=== PATIENT | male | born 1970 | race Caucasian/White ===

== ENCOUNTER → 2017-04-25 | Outpatient (CLI) | payer MEDICARE, MEDICAID ==
[~2017-04-25] MED LIST: methylPREDNISolone 80 MG/ML (DEPO MEDROL) VIAL ONE
[2017-04-25 13:21] VITALS: BP 136/82
[2017-04-25 13:47] VITALS: BP 130/77
--- NOTE | 2017-04-30 11:36 | OPERATIVE REPORT ---
DATE OF SERVICE: 04/25/2017 DIAGNOSIS: Lumbar radiculopathy. PROCEDURE: Fluoroscopic guided interlaminar epidural steroid injection, L4-L5. PROCEDURE IN DETAIL: After obtaining informed consent from the patient, the patient's chart was reviewed. The patient was then brought to the procedure room and placed in the prone position. A timeout was performed. The back was prepped with antiseptic solution and under fluoro guidance, the patient's lumbar spine was identified at the level of L4-L5. The L5 vertebra was identified with fluoro guidance and approximately 2 mL of 1.5% lidocaine solution was used to anesthetize the skin directly down to the pedicle of the L5 and under fluoro guidance, the tract was anesthetized up to the interlaminar space and the ligamentum flavum. This needle was withdrawn. Then, a 20-gauge 3.5 inch Tuohy needle was then directed following the same tract that was anesthetized with the spinal needle. Using loss of resistance, the epidural space was identified and then the syringe was switched for contrast solution which was injected, approximately 1 mL. After secondary confirmation of epidural access, another syringe was placed and 80 mg of Depo-Medrol was injected. The Tuohy needle was then flushed out with approximately 2 mL of the normal saline used from the loss of resistance syringe. Band-Aids were applied to all the procedure sites. The patient tolerated the procedure well and was taken to the recovery room in stable condition. COMPLICATIONS: None. Job ID: [id number] DocumentID: [id number] Dictated Date: 04/29/2017 10:51:49 [employer] Date: 04/29/2017 12:52:28 Dictated By: SARAH SALDANA DO
== END ==
LOC: CARD 13:07
PROVIDERS: ATTEND Pain Medicine Interventional Pain Medicine
DX: M54.16 Radiculopathy, lumbar region (principal); G89.4 Chronic pain syndrome; Z79.899 Other long term (current) drug therapy
CPT/HCPCS: 62323

== ENCOUNTER 2018-12-10 19:10 | Outpatient (CLI) | payer MEDICARE, MEDICAID | END 2018-12-11 06:00 | disposition home or self-care (01) | LOC: SLEEP 19:10 | PROVIDERS: ATTEND Surgery | DX: G47.33 Obstructive sleep apnea (adult) (pediatric) (principal) | CPT/HCPCS: 95810 ==

== ENCOUNTER 2019-01-21 13:35 | Observation (INO) | payer MEDICAID, MEDICARE ==
[~2019-01-21] VITALS: Ht 149.9 cm; Wt 118.1 kg
[2019-01-21] VITALS (8 sets, daily range): BP systolic 106–136; BP diastolic 70–84
--- NOTE | 2019-01-21 13:37 | NUR ---
Arrival of pt to ER with noted sobbing and tachypnea being synchronized. accompanies pt. Pt ambulates a few feet then reports dizziness "seeing stars". Placed pt in W/C to enter ED5. Pt reports a chest pain for 3 days. No medical evaluation until today. Pt continues to sob and rapidly breathe getting faster while conversing. Pt reports "I am so very hot". "I cannot stand it." "It is like a menopause version I bet." Pt reports a sensation of tight squeeze with radiation into Left shoulder. See pt hx contributed in triage. reports all of patient's meds as stating she "keeps track of them."
[2019-01-21] MEDS ORDERED: morphine INJ 10 MG/ML 1ML (SYR OR VIAL) IVP STA (13:54)
[2019-01-21] MEDS ORDERED: ASPIRIN 81 MG CHEW (CHILDREN'S ASA) PO ONE (14:00)
[2019-01-21] MEDS ORDERED: LORazepam INJ 2 MG/ML (ATIVAN) VIAL IVP ONE ×2 (14:00→15:00)
--- NOTE | 2019-01-21 14:24 | ED Chest Pain ---
General Chief Complaint: Chest Pain Stated Complaint: SOB; CHEST PAIN History of Present Illness Date Seen by Provider: Jan 21, 2019 Time Seen by Provider: 13:45 Initial Comments The patient is a 48-year-old male with a history of morbid obesity, hypertension on lisinopril, asthma, migraine headache and anxiety. He reports an episode of pericarditis about 10 years ago. Per records review he did have a nonischemic stress test in 2017. He presents with concern for 3 days of sharp, constant, poorly localizing and rather severe sternal chest discomfort which patient states is somewhat pleuritic in nature, but nonexertional. He endorses radiation to bilateral shoulders as well as to his back, but the sensation of radiation is dull and not ripping or tearing in character. Associated shortness of breath. Associated nausea. No associated diaphoresis. Patient appears quite anxious. He denies fevers, vomiting, new productive cough, abdominal pain, flank pain, back pain, dysuria or hematuria, changes in bowel habits. He denies recent immobilization, hemoptysis, surgery, calf pain or swelling, estrogen or steroid use, personal or family history of venous thromboembolic disease. Allergies and Home Medications Allergies Uncoded Allergies: HOMEOPATHIC PRODUCTS (Adverse Reaction, Unknown, 01/21/19) Strongly stated by patient Patient Home Medication List Home Medication List Reviewed: Yes Review of Systems Review of Systems Constitutional: see HPI All Other Systems Reviewed Negative Unless Noted: Yes (Negative excepted noted.) Past Glbrhms-Htulsp-Lweeij Hx Past Med/Social Hx: Reviewed Nursing Past Med/Soc Hx Family Medical History Reviewed Nursing Family Hx Physical Exam Vital Signs Vital Signs - First Documented 01/21/19 13:37 Temp 98.1 Pulse 104 Resp 28 B/P (MAP) 123/70 (87) Pulse Ox 96 O2 Delivery Room Air Capillary Refill : Height, Weight, BMI Height: 5'3.00" Weight: 215lbs. 0.0oz. 97.453122wy; 38.1 BMI Method: General Appearance: No Apparent Distress Other comments This is an older male appearing nontoxic and in no acute distress. He appears quite anxious. Head is normocephalic and atraumatic. Neck is supple and nontender. Oropharynx is moist. Lungs are clear to auscultation at all stations. There is a normal S1 and S2 without rubs or gallops and capillary refill is appropriate, less 2 seconds globally. Abdomen is soft, nontender and nondistended and there are no pulsatile masses noted. Skin is warm and dry without cyanosis, clubbing or dependent peripheral edema. There is no calf pain or swelling noted bilaterally. Psychiatrically, the patient demonstrates appropriate mood and affect and is alert. Progress/Results/Core Measures Results/Orders Lab Results Laboratory Tests Test 01/21/19 13:49 01/21/19 15:00 Range/Units White Blood Count 12.9 H 4.3-11.0 10^3/uL Red Blood Count 4.88 4.35-5.85 10^6/uL Hemoglobin 14.6 13.3-17.7 G/DL Hematocrit 44 40-54 % Mean Corpuscular Volume 89 80-99 FL Mean Corpuscular Hemoglobin 30 25-34 PG Mean Corpuscular Hemoglobin Concent 34 32-36 G/DL Red Cell Distribution Width 13.5 10.0-14.5 % Platelet Count 278 130-400 10^3/uL Mean Platelet Volume 9.1 7.4-10.4 FL Neutrophils (%) (Auto) 69 42-75 % Lymphocytes (%) (Auto) 20 12-44 % Monocytes (%) (Auto) 8 0-12 % Eosinophils (%) (Auto) 2 0-10 % Basophils (%) (Auto) 0 0-10 % Neutrophils # (Auto) 8.9 H 1.8-7.8 X 10^3 Lymphocytes # (Auto) 2.6 1.0-4.0 X 10^3 Monocytes # (Auto) 1.1 H 0.0-1.0 X 10^3 Eosinophils # (Auto) 0.3 0.0-0.3 10^3/uL Basophils # (Auto) 0.0 0.0-0.1 10^3/uL Sodium Level 131 L 135-145 MMOL/L Potassium Level 4.1 3.6-5.0 MMOL/L Chloride Level 92 L 98-107 MMOL/L Carbon Dioxide Level 23 21-32 MMOL/L Anion Gap 16 H 5-14 MMOL/L Blood Urea Nitrogen 7 7-18 MG/DL Creatinine 0.78 0.60-1.30 MG/DL Estimat Glomerular Filtration Rate > 60 BUN/Creatinine Ratio 9 Glucose Level 208 H 70-105 MG/DL Calcium Level 9.5 8.5-10.1 MG/DL Corrected Calcium 9.7 8.5-10.1 MG/DL Total Bilirubin 0.3 0.1-1.0 MG/DL Aspartate Amino Transf (AST/SGOT) 21 5-34 U/L Alanine Aminotransferase (ALT/SGPT) 22 0-55 U/L Alkaline Phosphatase 113 40-136 U/L Troponin T < 6 <=15 NG/L Pro-B-Type Natriuretic Peptide 7.2 <75.0 PG/ML Total Protein 7.4 6.4-8.2 GM/DL Albumin 3.8 3.2-4.5 GM/DL Prothrombin Time 14.4 12.2-14.7 SEC INR Comment 1.1 0.8-1.4 Activated Partial Thromboplast Time 28 24-35 SEC D-Dimer 0.25 0.00-0.49 UG/ML My Orders Orders - SAVITA ROJAS MD Cbc With Automated Diff (01/21/19 13:54) Comprehensive Metabolic Panel (01/21/19 13:54) Troponin T (01/21/19 13:54) Ekg Tracing (01/21/19 13:54) Chest 1 View Ap/Pa Only (01/21/19 13:54) Probnp Fs (01/21/19 13:54) Protime With Inr (01/21/19 13:54) Partial Thromboplastin Time (01/21/19 13:54) Aspirin Chewable Tablet (Baby Aspirin Ch (01/21/19 14:00) Morphine Injection (Morphine Injection (01/21/19 13:54) Lorazepam Injection (Ativan Injection) (01/21/19 14:00) Fibrin Degradation Products (01/21/19 13:54) Lorazepam Injection (Ativan Injection) (01/21/19 15:00) Ns Iv 1000 Ml (Sodium Chloride 0.9%) (01/21/19 14:58) Medications Given in ED Current Medications Medications Dose Ordered Sig/Lawson Route Start Time Stop Time Status Last Admin Dose Admin Aspirin 324 mg ONCE ONCE PO 01/21/19 14:00 01/21/19 14:01 DC 01/21/19 14:08 324 MG Lorazepam 1 mg ONCE ONCE IVP 01/21/19 14:00 01/21/19 14:01 DC 6/5/19 14:09 1 MG Lorazepam 1 mg ONCE ONCE IVP 01/21/19 15:00 01/21/19 15:01 DC 01/21/19 15:12 1 MG Vital Signs/I&O 01/21/19 01/21/19 13:37 13:37 Temp 98.1 Pulse 104 Resp 28 B/P (MAP) 123/70 (87) Pulse Ox 96 O2 Delivery Room Air Progress Progress Note : Time: 14:35 Progress Note 48-year-old patient with some risk factors but a nonsmoker and with a nonischemic stress test last in 2016, presenting with atypical generalized sternal sharp pleuritic chest discomfort 3 days. Initial EKG nonacute. We will check labs and chest x-ray and give medication for symptomatic management as per nursing flow sheet as well as an aspirin and will then reevaluate. Will send a d-dimer. Update 1540: Patient is resting somewhat more comfortably and vital signs remain stable. He remains rather anxious in the examination room. Workup is as above, generally without significant evidence of acute process aside from elevated glucose, raising suspicion for diabetes although he has no formal diagnosis of diabetes at this time. Troponin and EKG are nonacute, BNP is not elevated and d- dimer is negative. This patient remains symptomatic and does as above have some risk factors for coronary disease, will bring in for ACS rule out, observation on telemetry and likely a attention from cardiology. Patient is graciously accepted in transfer by Dr. Spaulding. EKG : Comment Sinus rhythm, rate 98, no acute ST elevation or depression, OR 157, QRS 82, QTC 438, EP interpretation. Diagnostic Imaging Comments INDICATION: Chest pain. COMPARISON: None. FINDINGS: Single frontal view of the chest demonstrates normal heart size and pulmonary vascularity. The lungs are well aerated and clear. No large pleural effusion or pneumothorax is seen. The visualized osseous structures show no acute abnormalities. IMPRESSION: 1. No acute cardiopulmonary process. Departure Impression Primary Impression: Other chest pain Additional Impression: Hyperglycemia Disposition: ADMITTED INPATIENT Condition: Stable Admissions Decision to Admit Reason: Admit from ER (General) Departure-Patient Inst. Referrals: [facility] (PCP) Primary Care Physician ABDIRASHID BAUER APRN (Family) Primary Care Physician SAVITA ROJAS MD Jan 21, 2019 14:24
--- NOTE | 2019-01-21 14:37 | Diagnostic Imaging Report ---
INDICATION: Chest pain. COMPARISON: None. FINDINGS: Single frontal view of the chest demonstrates normal heart size and pulmonary vascularity. The lungs are well aerated and clear. No large pleural effusion or pneumothorax is seen. The visualized osseous structures show no acute abnormalities. IMPRESSION: 1. No acute cardiopulmonary process. Dictated by: Dictated on workstation # [id number]
[2019-01-21] MEDS ORDERED: NS IV 1000 ML 1,000 ML IV SCH ×2 (14:58→21:45)
[2019-01-21 15:05] LABS: ALANINE AMINOTRANSFERASE 22 U/L (0-55); ALBUMIN 3.8 GM/DL (3.2-4.5); ALKALINE PHOSPHATASE 113 U/L (40-136); BILIRUBIN,TOTAL 0.3 MG/DL (0.1-1.0); BUN/CREATININE RATIO 9; CALCIUM 9.5 MG/DL (8.5-10.1); CARBON DIOXIDE 23 MMOL/L (21-32); CHLORIDE 92 MMOL/L (98-107); CREATININE SERUM 0.78 MG/DL (0.60-1.30); GFR ESTIMATED > 60; GLUCOSE 208 MG/DL (70-105); POTASSIUM 4.1 MMOL/L (3.6-5.0); SODIUM 131 MMOL/L (135-145); TOTAL PROTEIN 7.4 GM/DL (6.4-8.2)
[2019-01-21 15:19] LABS: HEMATOCRIT 44 % (40-54); HEMOGLOBIN 14.6 G/DL (13.3-17.7); MEAN CORPUSCULAR HEMOGLOBIN 30 PG (25-34); MEAN CORPUSCULAR HGB CONC 34 G/DL (32-36); MEAN CORPUSCULAR VOLUME 89 FL (80-99); PLATELET COUNT 278 10^3/uL (130-400); RED CELL DISTRIBUTION WIDTH 13.5 % (10.0-14.5); WHITE BLOOD COUNT 12.9 10^3/uL (4.3-11.0)
[2019-01-21 15:20] LABS: BASOPHILS % (AUTO) 0 % (0-10); EOSINOPHILS # (AUTO) 0.3 10^3/uL (0.0-0.3); EOSINOPHILS % (AUTO) 2 % (0-10); LYMPHOCYTES # (AUTO) 2.6 X 10^3 (1.0-4.0); LYMPHOCYTES % (AUTO) 20 % (12-44); MEAN PLATELET VOLUME 9.1 FL (7.4-10.4); MONOCYTES # (AUTO) 1.1 X 10^3 (0.0-1.0); MONOCYTES % (AUTO) 8 % (0-12); NEUTROPHILS # (AUTO) 8.9 X 10^3 (1.8-7.8); NEUTROPHILS % (AUTO) 69 % (42-75)
[2019-01-21 15:27] LABS: FIBRIN DEGRADATION PRODUCTS 0.25 UG/ML (0.00-0.49); INR 1.1 (0.8-1.4); PROTHROMBIN TIME PATIENT 14.4 SEC (12.2-14.7)
--- NOTE | 2019-01-21 15:30 | NUR ---
Pt has screamed out and running to doorway. Pt moved arm and dislodged IV. IV fluids shut off and gauze with pressure to R hand site. Pt continues to hyperventilate. Pt is very anxious and reports getting so hot. Reassurance given and sits near pt and attempts to talk patient thru spells of worsening tachypnea. states, "I am used to have to hold him down and personal development coach him when they do needles." "This happens at [facility]."
[2019-01-21] MEDS ORDERED: KETOROLAC 30 MG/ML VIAL IVP ONE (15:45)
--- NOTE | 2019-01-21 16:00 | NUR ---
Call to [facility] in [facility] office to request bed.
--- NOTE | 2019-01-21 16:59 | NUR ---
Transfer accepted by [facility] at this time. States they will be here in approximately 1 hour to get patient.
[2019-01-21] MEDS ORDERED: BACL20TA PO (18:03)
[2019-01-21] MEDS ORDERED: Trazodone HCL (18:03)
[2019-01-21] MEDS ORDERED: DIVA500T15 PO (18:03)
[2019-01-21] MEDS ORDERED: CLON1TAB13 PO (18:03)
[2019-01-21] MEDS ORDERED: LISI10TA2 PO (18:03)
[2019-01-21] MEDS ORDERED: DULO60CA58 PO (18:03)
[2019-01-21] MEDS ORDERED: SOLI10TA2 PO (18:03)
[2019-01-21] MEDS ORDERED: PANT40TA3 PO (18:03)
[2019-01-21] MEDS ORDERED: OXYC-471 PO (18:03)
--- NOTE | 2019-01-21 18:20 | NUR ---
[facility] here for transfer, add'l forms nearly complete for [facility]. Pt's to desk as noting staff can hear pt increasing respirations and sobbing sounds as per arrival. explains to patient ambulance in the building and further cease of hyperventilation noted. Report to [facility]. EMS requested [place] to wrap pt's saline lock site to perserve against accidental dislodge again.
--- NOTE | 2019-01-21 18:30 | NUR ---
Pt departing at this time on [facility] in transfer to [place] [facility]. No change in pt condiiton.
--- NOTE | 2019-01-21 19:15 | NUR ---
KIRAN BENTLEY admitted to room 408-1, with an admitting diagnosis of CHEST PAIN, on 01/21/19 from [facility] via EMS, accompanied by EMS STAFF.KIRAN BENTLEY introduced to surroundings, call light, bed controls, phone, TV, temperature control, lights, meal times, smoking policy, visitor policy, side rail policy, bathrooms and showers. Patient Rights given to patient in the handbook.KIRAN BENTLEY verbalizes understanding that [facility] is not responsible for the loss or damage to any personal effects or valuables that are kept in the patients posession during their hospitalization.
[2019-01-21] MEDS ORDERED: HYDROcodone/APAP 5 MG/325 MG (LORTAB) TAB PO PRN (21:45)
[2019-01-21] MEDS ORDERED: ACETAMINOPHEN 500 MG TAB (TYLENOL) PO PRN (21:45)
[2019-01-21] MEDS ORDERED: diphenhydrAMINE 25 MG TAB (BENADRYL) PO PRN (21:45)
[2019-01-21] MEDS ORDERED: ALPRAZolam 0.25 MG (XANAX) TAB PO PRN (21:45)
[2019-01-21] MEDS ORDERED: MELATONIN 3 MG TABLET PO PRN (21:45)
[2019-01-21] MEDS ORDERED: CALCIUM CARBONATE 500 MG (TUMS) TAB.CHEW PO PRN (21:45)
[2019-01-21] MEDS ORDERED: DOCUSATE SODIUM 100 MG (COLACE) CAP PO PRN (21:45)
[2019-01-21] MEDS ORDERED: fentaNYL INJECTION 100 MCG/2 ML AMP IVP PRN (21:45)
[2019-01-21] MEDS ORDERED: LOPERAMIDE 2 MG (IMODIUM) CAP PO PRN (21:45)
[2019-01-21] MEDS ORDERED: ONDANSETRON 4 MG/2 ML (SDV) Z0FRAN IVP PRN (21:45)
[2019-01-22] VITALS (13 sets, daily range): BP systolic 96–131; BP diastolic 56–84
[2019-01-22 02:27] LABS: ALANINE AMINOTRANSFERASE 23 U/L (0-55); ALBUMIN 3.7 GM/DL (3.2-4.5); ALKALINE PHOSPHATASE 103 U/L (40-136); BILIRUBIN,TOTAL 0.4 MG/DL (0.1-1.0); BUN/CREATININE RATIO 13; CALCIUM 9.5 MG/DL (8.5-10.1); CARBON DIOXIDE 20 MMOL/L (21-32); CHLORIDE 99 MMOL/L (98-107); CREATININE SERUM 0.87 MG/DL (0.60-1.30); GFR ESTIMATED > 60; GLUCOSE 166 MG/DL (70-105); POTASSIUM 4.2 MMOL/L (3.6-5.0); SODIUM 133 MMOL/L (135-145); TOTAL PROTEIN 7.3 GM/DL (6.4-8.2)
[2019-01-22 07:50] LABS: BASOPHILS % (AUTO) 0 % (0-10); EOSINOPHILS # (AUTO) 0.3 10^3/uL (0.0-0.3); EOSINOPHILS % (AUTO) 3 % (0-10); HEMATOCRIT 40 % (40-54); HEMOGLOBIN 13.2 G/DL (13.3-17.7); LYMPHOCYTES # (AUTO) 2.1 X 10^3 (1.0-4.0); LYMPHOCYTES % (AUTO) 17 % (12-44); MEAN CORPUSCULAR HEMOGLOBIN 29 PG (25-34); MEAN CORPUSCULAR HGB CONC 33 G/DL (32-36); MEAN CORPUSCULAR VOLUME 89 FL (80-99); MEAN PLATELET VOLUME 8.7 FL (7.4-10.4); MONOCYTES % (AUTO) 8 % (0-12); NEUTROPHILS # (AUTO) 8.7 X 10^3 (1.8-7.8); NEUTROPHILS % (AUTO) 72 % (42-75); PLATELET COUNT 249 10^3/uL (130-400); RED CELL DISTRIBUTION WIDTH 13.5 % (10.0-14.5); WHITE BLOOD COUNT 12.1 10^3/uL (4.3-11.0)
[2019-01-22] MEDS: SENNA W/DOCUSATE (SENOKOT S) TABLET PO SCH ×2 (08:59→21:33)
--- NOTE | 2019-01-22 09:55 | Short Stay Summary-Hospitalist ---
History of Present Illness HPI/Chief Complaint CC: Chest pain HPI: This is a 48yoWM clinic patient of [facility] who has a h/o chronic anxiety, DM, HTN and severe KYLE with severe obesity who presents to the [facility] ER with chest pain for 3 days. Patient has multiple risk factors for ACS so he was admitted and monitored overnight and will be seen by Cardiology. Overall p rognosis guarded given BMI 52 and severe KYLE. Source: patient, family Exam Limitations: no limitations Date Seen 01/22/19 Time Seen by a Provider: 09:30 Attending Physician Pita Spaulding DO [facility] Center/Se,[facility] Referring Physician Date of Admission Jan 21, 2019 at 15:46 Home Medications & Allergies Home Medications Reviewed patient Home Medication Reconciliation performed by pharmacy medication reconciliations mechanical engineering technician and/or nursing. Patients Allergies have been reviewed. Allergies Allergies Uncoded Allergies HOMEOPATHIC PRODUCTS ( Adverse Reaction, Unknown, 01/21/19) Strongly stated by patient Past Zxepgte-Tosnpi-Vwwkxn Hx Past Med/Social Hx: Reviewed Nursing Past Med/Soc Hx, Reviewed and Corrections made Patient Social History Marrital Status: cohabiting Employed/Student: unemployed Alcohol Use: Denies Use Recreational Drug Use: No Smoking Status: Never a Smoker Physical Abuse Screen: No Sexual Abuse: No Recent Foreign Travel: No Contact w/other who traveled: No Recent Hopitalizations: No Recent Infectious Disease Expo: No Immunizations Up To Date Date of Pneumonia Vaccine: Oct 26, 2014 Seasonal Allergies Seasonal Allergies: Yes (allergic rhinitis) Past Medical History Respiratory: Sleep Apnea Currently Using CPAP: Yes Cardiac: High Cholesterol, Hypertension Neurological: Headaches /Migraines Gastrointestinal: Gastroesophageal Reflux Musculoskeletal: Chronic Back Pain Psychosocial: Sleep Difficulties, Anxiety History of Blood Disorders: No Family History Reviewed Nursing Family Hx Review of Systems Constitutional: see HPI EENTM: no symptoms reported Respiratory: no symptoms reported Cardiovascular: chest pain Gastrointestinal: no symptoms reported Genitourinary: no symptoms reported Musculoskeletal: no symptoms reported Skin: no symptoms reported Psychiatric/Neurological: Anxiety All Other Systems Reviewed Negative Unless Noted: Yes Physical Exam Physical Exam Vital Signs Vital Signs - First Documented 01/21/19 13:37 Temp 98.1 Pulse 104 Resp 28 B/P (MAP) 123/70 (87) Pulse Ox 96 O2 Delivery Room Air Capillary Refill : Less Than 3 Seconds Height, Weight, BMI Height: 4'11.00" Weight: 260lbs. 7.0oz. 118.716414tf; 52.6 BMI Method:Stated General Appearance: No Apparent Distress, WD/WN, Chronically ill, Obese Eyes: Bilateral Eye Normal Inspection, Bilateral Eye PERRL HEENT: PERRL/EOMI, Normal ENT Inspection, Pharynx Normal Neck: Full Range of Motion, Normal Inspection, Non Tender, Supple, Carotid Bruit Respiratory: Chest Non Tender, Lungs Clear, Normal Breath Sounds, No Accessory Muscle Use, No Respiratory Distress Cardiovascular: Regular Rate, Rhythm, No Edema, No Gallop, No JVD, No Murmur, Normal Peripheral Pulses Gastrointestinal: Normal Bowel Sounds, No Organomegaly, No Pulsatile Mass, Non Tender, Soft Back: Normal Inspection, No CVA Tenderness, No Vertebral Tenderness Extremity: Normal Capillary Refill, Normal Inspection, Normal Range of Motion, Non Tender, No Calf Tenderness, No Pedal Edema Neurologic/Psychiatric: Alert, Oriented x3, No Motor/Sensory Deficits, Normal Mood/Affect Skin: Normal Color, Warm/Dry Lymphatic: No Adenopathy Results Results/Procedures Labs Laboratory Tests 01/21/19 13:49 01/22/19 01:50 01/22/19 07:45 Patient resulted labs reviewed. Short Stay Diagnosis Discharge Diagnosis-Short Stay Admission Diagnosis Assessment: Atypical chest pain KYLE severe Obesity morbid HTN HLP Chronic back pain Plan: Home meds Cardiology appreciated Final Discharge Diagnosis Assessment: Atypical chest pain KYLE severe Obesity morbid HTN HLP Chronic back pain Plan: Home meds Cardiology appreciated Conclusion Plan Plan: Monitor closely Cardiology appreciated Diagnosis/Problems Diagnosis/Problems (1) Other chest pain Status: Acute (2) Hyperglycemia Status: Acute Clinical Quality Measures AMI/AHF: ASA po Prior to arrival: No DVT/VTE Risk/Contraindication: Risk Factor Score Per Nursin RFS Level Per Nursing on Admit: 4+=Very High PITA SPAULDING DO Jan 22, 2019 09:55
[2019-01-22] MEDS ORDERED: ALBU2.5V4 NEB (10:09)
[2019-01-22] MEDS ORDERED: TRAZ-222 PO (10:09)
[2019-01-22] MEDS ORDERED: BISA-65 PO (10:09)
[2019-01-22] MEDS ORDERED: SOLI10TA2 PO (10:09)
[2019-01-22] MEDS ORDERED: DIPH25CA79 PO (10:09)
--- NOTE | 2019-01-22 10:09 | NUR ---
SPOKE WITH THE PATIENTS REGARDING MEDICATIONS. SHE HAD HIS BOTTLES WITH HER AND VERIFIED HOW HE TAKES THEM. BOTTLES FROM [facility] [employer] [facility] LAYNE LÓPEZ: 01-13-19 TRAZODONE 50MG HS #30 12-25-18 BACLOFEN 20MG 1/2 BID #30 12-25-18 OXYCODONE 5-325MG TID PRN #84 12-25-18 CLONAZEPAM 1MG 1.5 HS #42 12-24-18 LISINOPRIL 10MG DAILY #30 12-24-18 DULOXETINE 60MG DAILY #30 12-24-18 PROTONIX 40MG DAILY #30 12-24-18 DIVALPROEX ER 500MG DAILY #30 10-27-18 VESICARE 10MG DAILY #60 (STATES HE USED TO TAKE 5MG AND SO THEY TOOK 2 OF THE 5MG TABLETS UNTIL THEY WERE GONE) HE TAKES BENADRYL AND DULCOLAX OTC NEEDED. SHE ALSO STATES HE HAS AN ALBUTEROL NEBULIZER SOLUTION ON HAND AT HOME. HE DOES NOT HAVE ANY INHALERS.
--- NOTE | 2019-01-22 11:43 | Consultation-Cardiology ---
HPI-Cardiology Cardiology Consultation Date of Consultation 01/22/19 Date of Admission Time Seen by Provider: 11:39 Indication: chest pain HPI 48 years old gentleman with morbid obesity, hypertension hyperlipidemia. Has been having chest pain waxing and waning for few weeks, became worse yesterday described as dull achiness all over his chest radiating to the left upper side of his chest and left shoulder and back. Came into the emergency room and transferred for forced cough, currently chest pain-free. Reported having stress test done about a year ago in [place] and it was reported negative. Patient is fairly concerned with the recurrent chest pain. We discussed the management plan, I offered repeating stress test versus cardiac catheterization patient prefer to proceed with cardiac catheterization. Home Medications & Allergies Allergies: Uncoded Allergies: HOMEOPATHIC PRODUCTS (Adverse Reaction, Unknown, 01/21/19) Strongly stated by patient Home Medication List Reviewed: Yes LML-[id number]-Dqtdnp Hx Patient Social History Marital Status: Alcohol Use: Denies Use Recreational Drug Use: No Smoking Status: Never a Smoker Recent Foreign Travel: No Recent Infectious Disease Expo: No Recent Hopitalizations: No Physical Abuse Screen: No Sexual Abuse: No Immunizations Up To Date Date of Pneumonia Vaccine: Oct 26, 2014 Past Medical History discussed below Family Medical History Family Medical Hx strong family history of heart disease Review of Systems-General Review of Systems Constitutional: no symptoms reported, see HPI, malaise EENTM: see HPI, no symptoms reported Respiratory: see HPI; No cough; dyspnea on exertion; No hemoptysis, No orthopnea, No phlegm; short of breath; No stridor, No wheezing, No other Cardiovascular: see HPI, chest pain; No edema, No Hx of Intervention, No palpitations, No syncope, No vascular heart diseas, No other Gastrointestinal: no symptoms reported, see HPI Genitourinary: no symptoms reported, see HPI Musculoskeletal: see HPI, back pain, neck pain Skin: see HPI Psychiatric/Neurological: See HPI All Other Systems Reviewed Negative Unless Noted: Yes (Negative excepted noted.) Reviewed Test Results Reviewed Test Results Lab Laboratory Tests Test 01/21/19 13:49 01/21/19 15:00 01/21/19 20:20 01/22/19 01:50 Range/Units White Blood Count 12.9 H 4.3-11.0 10^3/uL Red Blood Count 4.88 4.35-5.85 10^6/uL Hemoglobin 14.6 13.3-17.7 G/DL Hematocrit 44 40-54 % Mean Corpuscular Volume 89 80-99 FL Mean Corpuscular Hemoglobin 30 25-34 PG Mean Corpuscular Hemoglobin Concent 34 32-36 G/DL Red Cell Distribution Width 13.5 10.0-14.5 % Platelet Count 278 130-400 10^3/uL Mean Platelet Volume 9.1 7.4-10.4 FL Neutrophils (%) (Auto) 69 42-75 % Lymphocytes (%) (Auto) 20 12-44 % Monocytes (%) (Auto) 8 0-12 % Eosinophils (%) (Auto) 2 0-10 % Basophils (%) (Auto) 0 0-10 % Neutrophils # (Auto) 8.9 H 1.8-7.8 X 10^3 Lymphocytes # (Auto) 2.6 1.0-4.0 X 10^3 Monocytes # (Auto) 1.1 H 0.0-1.0 X 10^3 Eosinophils # (Auto) 0.3 0.0-0.3 10^3/uL Basophils # (Auto) 0.0 0.0-0.1 10^3/uL Sodium Level 131 L 133 L 135-145 MMOL/L Potassium Level 4.1 4.2 3.6-5.0 MMOL/L Chloride Level 92 L 99 98-107 MMOL/L Carbon Dioxide Level 23 20 L 21-32 MMOL/L Anion Gap 16 H 14 5-14 MMOL/L Blood Urea Nitrogen 7 11 7-18 MG/DL Creatinine 0.78 0.87 0.60-1.30 MG/DL Estimat Glomerular Filtration Rate > 60 > 60 BUN/Creatinine Ratio 9 13 Glucose Level 208 H 166 H 70-105 MG/DL Calcium Level 9.5 9.5 8.5-10.1 MG/DL Corrected Calcium 9.7 9.7 8.5-10.1 MG/DL Total Bilirubin 0.3 0.4 0.1-1.0 MG/DL Aspartate Amino Transf (AST/SGOT) 21 18 5-34 U/L Alanine Aminotransferase (ALT/SGPT) 22 23 0-55 U/L Alkaline Phosphatase 113 103 40-136 U/L Troponin T < 6 <=15 NG/L Pro-B-Type Natriuretic Peptide 7.2 <75.0 PG/ML Total Protein 7.4 7.3 6.4-8.2 GM/DL Albumin 3.8 3.7 3.2-4.5 GM/DL Prothrombin Time 14.4 12.2-14.7 SEC INR Comment 1.1 0.8-1.4 Activated Partial Thromboplast Time 28 24-35 SEC D-Dimer 0.25 0.00-0.49 UG/ML Troponin I < 0.028 < 0.028 <0.028 NG/ML Test 01/22/19 07:45 Range/Units White Blood Count 12.1 H 4.3-11.0 10^3/uL Red Blood Count 4.50 4.35-5.85 10^6/uL Hemoglobin 13.2 L 13.3-17.7 G/DL Hematocrit 40 40-54 % Mean Corpuscular Volume 89 80-99 FL Mean Corpuscular Hemoglobin 29 25-34 PG Mean Corpuscular Hemoglobin Concent 33 32-36 G/DL Red Cell Distribution Width 13.5 10.0-14.5 % Platelet Count 249 130-400 10^3/uL Mean Platelet Volume 8.7 7.4-10.4 FL Neutrophils (%) (Auto) 72 42-75 % Lymphocytes (%) (Auto) 17 12-44 % Monocytes (%) (Auto) 8 0-12 % Eosinophils (%) (Auto) 3 0-10 % Basophils (%) (Auto) 0 0-10 % Neutrophils # (Auto) 8.7 H 1.8-7.8 X 10^3 Lymphocytes # (Auto) 2.1 1.0-4.0 X 10^3 Monocytes # (Auto) 1.0 0.0-1.0 X 10^3 Eosinophils # (Auto) 0.3 0.0-0.3 10^3/uL Basophils # (Auto) 0.0 0.0-0.1 10^3/uL Troponin I < 0.028 <0.028 NG/ML Physical Exam Physical Exam Vital Signs Vital Signs - First Documented 01/21/19 13:37 Temp 98.1 Pulse 104 Resp 28 B/P (MAP) 123/70 (87) Pulse Ox 96 O2 Delivery Room Air Capillary Refill : Less Than 3 Seconds Height, Weight, BMI Height: 4'11.00" Weight: 260lbs. 7.0oz. 118.391766jl; 52.6 BMI Method:Stated General Appearance: No Apparent Distress Eyes: Bilateral Eye Normal Inspection, Bilateral Eye PERRL, Bilateral Eye EOMI HEENT: PERRL/EOMI, TMs Normal, Normal ENT Inspection, Pharynx Normal, Moist Mucous Membranes Neck: Full Range of Motion, Normal Inspection, Non Tender, Supple, Carotid Bruit Respiratory: Chest Non Tender, Normal Breath Sounds, No Accessory Muscle Use, No Respiratory Distress Cardiovascular: Regular Rate, Rhythm, No Edema, No Gallop, No JVD, No Murmur, Normal Peripheral Pulses Gastrointestinal: Normal Bowel Sounds, No Organomegaly, No Pulsatile Mass, Non Tender, Soft Back: Normal Inspection, No CVA Tenderness, No Vertebral Tenderness Extremity: Normal Capillary Refill, Normal Inspection, Normal Range of Motion, Non Tender, No Calf Tenderness, No Pedal Edema Neurologic/Psychiatric: Alert, Oriented x3, No Motor/Sensory Deficits, Normal Mood/Affect Skin: Normal Color, Warm/Dry Lymphatic: No Adenopathy A/P-Cardiology Admission Diagnosis chest pain Hypertension Hyperlipidemia Shortness of breath Assessment/Plan chest pain nonspecific etiology resembling angina, cardiac enzymes and EKG were negative, had a stress test done about a year ago, discussed the management plan, I offered stress test versus Cardec catheterization, patient preferred to proceed with cardiac catheterization, has been to have stress test again. Hypertension, continue to monitor blood pressure Hyperlipidemia, monitor lipids. Chronic back pain, neck pain Morbid obesity. Clinical Quality Measures AMI/AHF: ASA po Prior to arrival: No DVT/VTE Risk/Contraindication: Risk Factor Score Per Nursin RFS Level Per Nursing on Admit: 4+=Very High PAO SCHAFFER MD Jan 22, 2019 11:43
[2019-01-22] MEDS ORDERED: NS IV 1000 ML 1,000 ML IV SCH ×2 (11:45→16:10)
--- NOTE | 2019-01-22 12:27 | NUR ---
Patient complained of chest tightness. Vital signs are 124/76, Pulse 92, Respirations 22, Os Sat 95%. Tele shows Sinus Rhythm. Spoke with Dr. Cardoza and orders received for Nitro Sublinguil now. Patient received Nitro SL and tightness subsided in 5 minutes.
[2019-01-22] MEDS ORDERED: NITROGLYCERIN 0.4 MG SL TABS BTL 25'S SL PRN (12:30)
[2019-01-22] MEDS ORDERED: LIDOCAINE 1% INJ 20 ML 20 ML VIAL ONE (13:26)
[2019-01-22] MEDS ORDERED: HEParin (CATH LAB) 2,000 ML IV ONE (13:26)
[2019-01-22] MEDS ORDERED: MIDAZOLAM 5 MG/5 ML (VERSED) VIAL ONE (13:30)
[2019-01-22] MEDS ORDERED: fentaNYL INJECTION 100 MCG/2 ML AMP ONE (13:30)
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
[2019-01-22] MEDS ORDERED: RT-ALBUTEROL SULF 2.5 MG/3 ML PRE-MIX VIAL IH PRN (15:30)
[2019-01-22] MEDS ORDERED: NON-FORMULARY MEDICATION 1 EA EA (Diphenhydramine HCl (Benadryl) 25 MG) PO PRN (15:30)
[2019-01-22] MEDS ORDERED: BISACODYL 5 MG (DULCOLAX) TABLET PO PRN (15:30)
[2019-01-22] MEDS ORDERED: oxyCODONE/APAP 5/325MG (PERCOCET 5) TABLET PO PRN (15:30)
--- NOTE | 2019-01-22 15:30 | NUR ---
Patient taken to chemical lab technician per cath staff per hospital bed.
[2019-01-22] MEDS ORDERED: ASPI-983 PO (16:13)
--- NOTE | 2019-01-22 16:14 | Discharge Inst-Post CATH ---
Discharge Inst-CATH/EP Post Cardiac Cath/EP D/C Inst Follow Up/Plan Appointment with Dr. Cardoza's office in 4 weeks <b>CARDIAC CATH/EP PROCEDURE DISCHARGE INSTRUCTIONS</b> Cardiac Rehab Please be expecting a follow up call from Cardiac Rehab within in one week. ACTIVITY * Go Home directly and rest. * Limit activity of the leg (or wrist if it was used) for 7 days including aerobics, swimming, jogging, bicycling, etc. * Restrict stair-climbing for 7 days if possible, if not, climb up with your non-cath leg, then bring together on the same step. * Avoid lifting, pushing, pulling or excessive movement of the affected extremity for 7 days. * Customary sexual activity may be resumed after 2 days-use caution not to use a position that strains or causes pain to the affected extremity. * No driving for 24 hours. * NO SMOKING. * Avoid straining for bowel movements for 7 days. * Gentle walking on level ground is allowed. * Returning to work will depend on the type of procedure and the results. Your doctor will discuss this with you. CALL YOUR DOCTOR FOR ANY OF THE FOLLOWING: *If bleeding from the puncture site occurs- Apply gentle pressure to site with clean cloth and call your doctor or EMS. * If a knot or lump forms under the skin, increases in size, or causes pain. * If bruising appears to be worsening or moving further down your leg instead of disappearing. * Temperature above 101 F. CARE OF YOUR GROIN INCISION; * Bruising or purple discoloration of the skin near the puncture site is common. * You may shower only, no bathtub bathing for 5 days. Be careful to avoid slipping as your leg may feel stiff. * If a closure device was used on your femoral artery, please see the attached guide regarding care of the device and your leg. * Leave dressing on FOR 24 hours. CARE OF YOUR WRIST INCISION; * Bruising or purple discoloration of the skin near the puncture site is common. * You may shower. * DO NOT submerge wrist. * Leave dressing on FOR 24 hours. PAO CARDOZA MD Jan 22, 2019 16:14
[2019-01-22] MEDS ORDERED: PATIENT MAY USE OWN MEDS, ALL PO SCH (16:15)
--- NOTE | 2019-01-22 16:17 | Cardiac Cath Report ---
Cardiac Cath Report Physician (s)/[facility] Tuner (s) Physician PAO SCHAFFER MD Pre-Procedure Diagnosis Pre-Procedure Diagnosis: chest pain, coronary artery disease Post-Procedure Note Procedure Start Date: Jan 22, 2019 Name of Procedure: Left heart catheterization Findings/Procedure Note PROCEDURE NOTE: 48 years old gentleman with recurrent chest pain, has been having active chest pain, brought for cardiac catheterization possible PTCA. After explaining the procedure to the patient, all pros and cons were explained, all questions were answered. The patient signed the consent and then he was placed on the cardiac catheterization laboratory. Groin was prepped SL fashion local anesthesia was used. Sheath placed in the right femoral artery. Ira right and left catheter were used to access the coronary system. Pigtail was used to access the left ventricular cavity. Left ventriculogram was done At the end of the procedure the sheath was removed. Closure device was used FINDINGS: Hemodynamics LV 112/22 end diastolic pressure is 22 Aorta 133/77 mean of 99 ANATOMY: Left Main has ostial 50 percent stenosis nonobstructive disease Left Anterior Descending has mild disease nonobstructive disease Left Circumflex has mild disease nonobstructive disease Right Coronory Artery has mild diffuse ectasia with no obstructive disease LV Gram was done showing normal LV size and function with ejection fraction 60 percent CONCLUSION: 1. 50 percent ostial left main coronary artery stenosis nonobstructive disease 2. Mild ectasia in the right coronary artery with small vessel disease. 3. Normal left ventricular size and systolic function estimated ejection fraction 60 percent DISCUSSION AND RECOMMENDATION: Medical therapy is recommended no intervention is needed Anesthesia Type: Conscious Sedation Estimated blood loss (mL): 25 ml Contrast Amount: 70 ml Total Radiation Dose: 814 mGy Post-Procedure Diagnosis Post-operative diagnosis: Chest pain nonspecific etiology Coronary artery disease Hypertension Back pain PAO SCHAFFER MD Jan 22, 2019 16:17
--- NOTE | 2019-01-22 16:18 | Cardiac Procedure Note-CS/ASA ---
Pre-Procedure Note Pre-Op Procedure Note H&P Reviewed The H&P was reviewed, patient examined and no changes noted. Date H&P Reviewed: Jan 22, 2019 Time H&P Reviewed: 12:00 Conscious Sedation Pre-Proced Time 12:00 ASA Score 3 For ASA 3 and 4: Consider anesthesia and medical clearance. Also, for patients with a history of failed moderate sedation consider anesthesia. Airway Lungs Heart ASA score ASA 1: a normal healthy patient ASA 2: a patient with a mild systemic disease (mid diabetes, controlled hypertension, obesity x ASA 3: a patient with a severe systemic disease that limits activity (angina, COPD, prior Myocardial infarction) ASA 4: a patient with an incapacitating disease that is a constant threat to life (CHF, renal failure) ASA 5: a moribund patient not expected to survive 24 hrs. (ruptured aneurysm) ASA 6: a declared brain- patient whose organs are being harvested. For emergent operations, add the letter E after the classification Mallampati Classification Grade 3 Sedation Plan Analgesia, Amnesia, Plan communicated to team members, Discussed options with patient/fam, Discussed risks with patient/fam The patient is an appropriate candidate to undergo the planned procedure, sedation, and anesthesia. The patient immediately re-assessed prior to indication. PAO SCHAFFER MD Jan 22, 2019 16:18
[2019-01-22] MEDS ORDERED: clonazePAM 1 MG (KlonoPIN) TAB PO SCH (21:00)
[2019-01-22] MEDS ORDERED: CLONAZEPAM 1.5 MG PO SCH (21:00)
[2019-01-22] MEDS ORDERED: traZODone 50 MG (DESYREL) TAB PO SCH (21:00)
[2019-01-22] MEDS ORDERED: BACLOFEN 10 MG (LIORESAL) TAB PO SCH (21:00)
[2019-01-22] MEDS ORDERED: BACLOFEN 10 MG PO SCH (21:00)
--- NOTE | 2019-01-22 21:00 | NUR ---
STATES THAT SHE WILL GIVE PATIENT HIS HOME MEDICATIONS WHEN THEY GET HOME LATER THIS EVENING.
--- NOTE | 2019-01-22 22:45 | NUR ---
PATIENT DISCHARGE INSTRUCTIONS REVIEWED WITH PATIENT AND . PATIENT VERBALIZES THAT NEEDS TO FOLLOW UP WITH DR. SCHAFFER IN 4 WEEKS. PATIENT HAS DRANK CLEAR LIQUIDS AND DENIES ANY NAUSEA/VOMITING. PATIENT HAS URINATED. CATH SITE SOFT AND DRESSING DRY/INTACT. PATIENT DENIES PAIN.
[2019-01-23] MEDS ORDERED: TROSPIUM 20 MG (SANCTURA) TAB PO SCH (06:00)
[2019-01-23] MEDS ORDERED: PANTOPRAZOLE 40 MG (PROTONIX) TAB PO SCH (07:00)
[2019-01-23] MEDS ORDERED: DIVALPROEX EXT RELEASE 500 MG (DEPAKOTE ER) TAB PO SCH (09:00)
[2019-01-23] MEDS ORDERED: DULoxetine 30 MG (CYMBALTA) CAP PO SCH (09:00)
[2019-01-23] MEDS ORDERED: NON-FORMULARY MEDICATION 1 EA EA (Duloxetine HCl 60 MG) PO SCH (09:00)
[2019-01-23] MEDS ORDERED: NON-FORMULARY MEDICATION 1 EA EA (Solifenacin Succinate (Vesicare) 10 MG) PO SCH (09:00)
[2019-01-23] MEDS ORDERED: lisINopril 10 MG (PRINIVIL) TABLET PO SCH (09:00)
== END 2019-01-22 22:45 | disposition home or self-care (01) ==
LOC: EDUNIT# 13:35 → ER FS 13:37 → 4TH 15:46 → ICU 01-22 16:33
PROVIDERS: ADMIT Internal Medicine; ATTEND Internal Medicine
DX: R07.89 Other chest pain (principal); I25.10 Atherosclerotic heart disease of native coronary artery without angina pectoris; I10 Essential (primary) hypertension; E78.5 Hyperlipidemia, unspecified; R06.02 Shortness of breath; M54.2 Cervicalgia; E66.01 Morbid (severe) obesity due to excess calories; F41.9 Anxiety disorder, unspecified; G47.33 Obstructive sleep apnea (adult) (pediatric); Z68.43 Body mass index [BMI] 50.0-59.9, adult; E78.00 Pure hypercholesterolemia, unspecified; G43.909 Migraine, unspecified, not intractable, without status migrainosus; K21.9 Gastro-esophageal reflux disease without esophagitis; Z79.899 Other long term (current) drug therapy
CPT/HCPCS: 36415; 71045; 80053; 83880; 84484; 85025; 85379; 85610; 85730; 93005; 93041; 93458; 96361; 96374; 96375; 96376; G0378

== ENCOUNTER → 2019-03-13 | Outpatient (CLI) | payer MEDICARE ==
[~2019-03-13] MED LIST changes: +ALBU2.5V4 NEB; +ASPI-983 PO; +BACL20TA PO; +BISA-65 PO; +CLON1TAB13 PO; +DIPH25CA79 PO; +DIVA500T15 PO; +DULO60CA58 PO; +LISI10TA2 PO; +OXYC-471 PO; +PANT40TA3 PO; +SOLI10TA2 PO; +TRAZ-222 PO; +Trazodone HCL; -methylPREDNISolone 80 MG/ML (DEPO MEDROL) VIAL ONE
--- NOTE | 2019-03-13 16:54 | Diagnostic Imaging Report ---
INDICATION: Bilateral knee pain. TECHNIQUE: Three views of the bilateral knees. CORRELATION STUDY: None. FINDINGS: The joint spaces overall appear to be fairly well maintained of both knees. The articular surfaces demonstrate very slight scalloped defect weightbearing portion centrally right medial femoral condyle. No significant marginal osteophyte formation. The patellofemoral alignment appears unremarkable. Soft tissues are unremarkable. IMPRESSION: Negative for acute bony abnormality of the knee. Relatively unremarkable examination of bilateral knees. Dictated by: Dictated on workstation # [id number]
--- NOTE | 2019-03-13 17:29 | Diagnostic Imaging Report ---
EXAMINATION: Cervical spine series. INDICATION: Neck pain and arm numbness. FINDINGS: The patient's large body habitus limits assessment of the cervicothoracic junction. The visualized portions of the cervical spine demonstrate normal alignment. The vertebral body heights appear maintained at the C5 level. There is no widening of the predental space or abnormal prevertebral soft tissue thickening evident. AP alignment is unremarkable. There is a normal odontoid view. IMPRESSION: 1. The visualized portions of the cervical spine demonstrate maintenance of vertebral body height and normal alignment, though there is marked obscuration of the cervicothoracic junction secondary to overlying structures related to patient's large body habitus. Given these limitations if continued clinical symptomatology, CT imaging could be considered. Dictated by: Dictated on workstation # [id number]
== END ==
LOC: RAD FS 15:46
PROVIDERS: ATTEND Nurse Practitioner Family
DX: M25.561 Pain in right knee (principal); M25.562 Pain in left knee; M54.2 Cervicalgia; M54.10 Radiculopathy, site unspecified; R20.0 Anesthesia of skin
CPT/HCPCS: 72040

== ENCOUNTER → 2019-03-25 | Outpatient (CLI) | payer MEDICARE, MEDICAID ==
[~2019-03-25] MED LIST changes: -DULO60CA58 PO; +DULO60CA59 PO
--- NOTE | 2019-03-25 11:54 | Diagnostic Imaging Report ---
PROCEDURE: CT cervical spine without contrast. TECHNIQUE: Multiple contiguous axial images were obtained through the cervical spine without the use of intravenous contrast. Sagittal and coronal reformations were then performed. Auto Exposure Controls were utilized during the CT exam to meet ALARA standards for radiation dose reduction. INDICATION: Neck pain and bilateral arm numbness. FINDINGS: Overall alignment of cervical spine is normal. There is some straightening of the normal cervical lordotic curvature. Generalized cervical degenerative disc disease is seen with variable disc space narrowing and marginal spurring, greatest at C6-C7 level. No fractures are identified. The prevertebral tissues are normal. Odontoid is intact. Bony spinal canal appears to be widely patent. IMPRESSION: Mild generalized cervical spondylosis. No acute bony abnormality is detected. Dictated by: Dictated on workstation # [id number]
== END ==
LOC: RAD FS 09:58
PROVIDERS: ATTEND Nurse Practitioner Family
DX: M47.812 Spondylosis without myelopathy or radiculopathy, cervical region (principal)
CPT/HCPCS: 72125

== ENCOUNTER 2019-04-01 23:12 | Emergency (ER) | payer MEDICARE, MEDICAID ==
[~2019-04-01] VITALS: Ht 149.9 cm; Wt 121.6 kg
[2019-04-01] MEDS ORDERED: HOLD METFORMIN - RECEIVED CONTRAST 20 ML VIAL IV SCH (23:30)
[2019-04-01] MEDS ORDERED: IOHEXOL 350 MG/ML 100 ML (OMNIPAQUE 350) VIAL IV ONE (23:30)
[2019-04-01] MEDS ORDERED: LORazepam INJ 2 MG/ML (ATIVAN) VIAL IVP ONE (23:30)
[2019-04-01] MEDS ORDERED: NS 100 ML (IVPB) BAG IV ONE (23:30)
[2019-04-01] MEDS ORDERED: PIPERACILLIN/TAZOBACTAM (BULK) 4.5 GM in NS (IVPB) 100 ML IV ONE (23:30)
[2019-04-01] MEDS ORDERED: PIPERACILLIN/TAZO 4.5 GM VIAL (ZOSYN) IV ONE (23:37)
[2019-04-01 23:44] LABS: HEMATOCRIT 42 % (40-54); HEMOGLOBIN 13.6 G/DL (13.3-17.7); MEAN CORPUSCULAR HEMOGLOBIN 29 PG (25-34); MEAN CORPUSCULAR HGB CONC 33 G/DL (32-36); MEAN CORPUSCULAR VOLUME 90 FL (80-99); MEAN PLATELET VOLUME 8.5 FL (7.4-10.4); NEUTROPHILS % (AUTO) 63 % (42-75); PLATELET COUNT 255 10^3/uL (130-400); RED CELL DISTRIBUTION WIDTH 13.2 % (10.0-14.5)
[2019-04-01 23:45] LABS: BASOPHILS # (AUTO) 0.1 10^3/uL (0.0-0.1); BASOPHILS % (AUTO) 1 % (0-10); EOSINOPHILS # (AUTO) 0.5 10^3/uL (0.0-0.3); EOSINOPHILS % (AUTO) 5 % (0-10); LYMPHOCYTES # (AUTO) 2.4 X 10^3 (1.0-4.0); LYMPHOCYTES % (AUTO) 22 % (12-44); MONOCYTES # (AUTO) 0.9 X 10^3 (0.0-1.0); MONOCYTES % (AUTO) 8 % (0-12)
[2019-04-01 23:57] LABS: PROTHROMBIN TIME PATIENT 13.9 SEC (12.2-14.7)
--- NOTE | 2019-04-02 00:06 | NUR ---
PT. WEARS A C-PAP AT HS AND 02 PRN. HE HAS A HISTORY OF CHF, AN OK, AND EDEMA.
[2019-04-02 00:13] LABS: BUN/CREATININE RATIO 14; CARBON DIOXIDE 24 MMOL/L (21-32); CHLORIDE 98 MMOL/L (98-107); CREATININE SERUM 0.79 MG/DL (0.60-1.30); GFR ESTIMATED > 60; SODIUM 138 MMOL/L (135-145)
[2019-04-02 00:14] LABS: ALANINE AMINOTRANSFERASE 23 U/L (0-55); ALBUMIN 3.6 GM/DL (3.2-4.5); ALKALINE PHOSPHATASE 81 U/L (40-136); BILIRUBIN,TOTAL 0.2 MG/DL (0.1-1.0); CALCIUM 9.3 MG/DL (8.5-10.1); GLUCOSE 135 MG/DL (70-105); TOTAL PROTEIN 7.2 GM/DL (6.4-8.2)
[2019-04-02 00:15] LABS: LIPASE 16 U/L (8-78)
[2019-04-02] MEDS ORDERED: NS 100 ML (IVPB) BAG IV ONE (00:15)
[2019-04-02] MEDS ORDERED: IOHEXOL 350 MG/ML 100 ML (OMNIPAQUE 350) VIAL IV ONE (00:15)
[2019-04-02] MEDS ORDERED: HOLD METFORMIN - RECEIVED CONTRAST 20 ML VIAL IV SCH (00:15)
--- NOTE | 2019-04-02 00:22 | NUR ---
PT. ABLE TO DRINK WATER WITHOUT ANY PROBLEMS.
[2019-04-02 00:24] VITALS: BP 137/71
--- NOTE | 2019-04-02 00:48 | ED General ---
General Chief Complaint: Foreign Body Stated Complaint: FOREIGN BODY Nursing Triage Note: PT. WAS BROUGHT TO THE ER BY EMS WITH THE C/O HAVING HAD CHOCKED ON A TACO. EMS REPORTED THAT THE PT HAD STRIDER WHEN THEY ARRIVED TO PICK HIM UP. BY STANDERS DID THE HEIMLICH PROCEEDURE AND SOME OF THE TACO WAS REMOVED WHEN EMS CHECKED HIM THEY COULD NOT SEE ANY FOREIGN BODY. PT. IS VERY ANXIOUS AT THIS TIME. REPORTED BY THE PT. THAT HE HAS UPPER ABD, LOWER CHEST PAIN. DOCTOR IN TO SEE THE PATIENT. Nursing Sepsis Screen: No Definite Risk History of Present Illness Date Seen by Provider: Apr 02, 2019 Time Seen by Provider: 00:42 Initial Comments Patient presents emergency department for evaluation of shortness of breath chest pain and abdominal pain status post choking episode that required Heimlich maneuver. Patient was eating soft tacos when all of a sudden he started choking and his attempted to do the Heimlich but was unsuccessful as patient is quite large so a friend and bear him and did the Heimlich maneuver several times and finally the food broke loose. Patient reportedly lost consciousness for a short period of time as he was choking for approximately one to 2 minutes per the . Patient felt the above symptoms after the Heimlich maneuver. Patient is hyperventilating and tearful, he said that he was scared for his life and he is still quite scared she felt as if he was going to . Patient has extensive medical history including CHF that requires him to her oxygen as well as wearing CPAP at night. He is in no obvious distress with normal vital signs including O2 sat of 96% on RA. Allergies and Home Medications Allergies Uncoded Allergies: HOMEOPATHIC PRODUCTS (Adverse Reaction, Unknown, 01/21/19) Strongly stated by patient Home Medications Albuterol Sulfate 2.5 Mg/3 Ml Vial.neb, 2.5 MG NEB Q6H PRN for SHORTNESS OF BREATH, (Reported) Aspirin 81 Mg Tablet., 81 MG PO DAILY Prescribed by: PAO SCHAFFER on 01/22/19 0161 Baclofen 20 Mg Tablet, 10 MG PO BID, (Reported) TAKES 1/2 (20MG) TABLET Bisacodyl 5 Mg Tablet.dr, 5 MG PO DAILY PRN for CONSTIPATION-4TH LINE, (Reported) Clonazepam 1 Mg Tablet, 1.5 MG PO HS, (Reported) TAKES 1 & 1/2 (1MG) TABLET Diphenhydramine HCl 25 Mg Capsule, 25 MG PO DAILY PRN for ALLERGIES, (Reported) Divalproex Sodium 500 Mg Tab.er.24h, 500 MG PO DAILY, (Reported) Duloxetine HCl 60 Mg Capsule.dr, 60 MG PO DAILY, (Reported) Lisinopril 10 Mg Tablet, 10 MG PO DAILY, (Reported) Oxycodone HCl/Acetaminophen 1 Each Tablet, 1 TAB PO TID PRN for PAIN-MODERATE, (Reported) Pantoprazole Sodium 40 Mg Tablet.dr, 40 MG PO DAILY, (Reported) Solifenacin Succinate 10 Mg Tablet, 10 MG PO DAILY, (Reported) Trazodone HCl 50 Mg Tablet, 50 MG PO HS, (Reported) Patient Home Medication List Home Medication List Reviewed: Yes Review of Systems Review of Systems Constitutional: no symptoms reported EENTM: no symptoms reported Respiratory: cough, short of breath Cardiovascular: chest pain Gastrointestinal: abdominal pain Genitourinary: no symptoms reported Musculoskeletal: no symptoms reported Skin: no symptoms reported Psychiatric/Neurological: No Symptoms Reported All Other Systems Reviewed Negative Unless Noted: Yes Past Prchjpl-Iianak-Ndycmu Hx Patient Social History Recent Foreign Travel: No Contact w/Someone Who Travel: No Recent Infectious Disease Expo: No Recent Hopitalizations: No Physical Abuse: No Sexual Abuse: No Mistreated: No Fear: No Immunizations Up To Date Date of Pneumonia Vaccine: Oct 26, 2014 Seasonal Allergies Seasonal Allergies: Yes (allergic rhinitis) Past Medical History Surgeries: Yes (colonoscopy) Respiratory: Yes Asthma Currently Using CPAP: Yes Cardiac: Yes High Cholesterol, Hypertension Neurological: Yes Headaches /Migraines Genitourinary: No Gastrointestinal: Yes Gastroesophageal Reflux Musculoskeletal: Yes (Osteoarthrosis, Neural foraminal stenosis cervical spine) Chronic Back Pain Endocrine: Yes (Morbid Obesity > 40) HEENT: No Cancer: No Psychosocial: Yes Sleep Difficulties, Anxiety Blood Disorders: No Physical Exam Vital Signs Vital Signs - First Documented 04/01/19 23:22 Temp 97.9 Pulse 90 Resp 20 B/P (MAP) 158/105 (122) Pulse Ox 96 O2 Delivery Room Air Capillary Refill : Less Than 3 Seconds Height, Weight, BMI Height: 4'11.00" Weight: 268lbs. 7.0oz. 121.047820bv; 52.6 BMI Method:Actual General Appearance: No Apparent Distress, Anxious, Chronically ill, Obese Eyes: Bilateral Eye Normal Inspection HEENT: PERRL/EOMI Neck: Supple Respiratory: Normal Breath Sounds, No Accessory Muscle Use, No Respiratory Dist ress; No Stridor; Other (Reproducible lower sternum and epigastrum ttp.) Cardiovascular: Regular Rate, Rhythm, No Edema Gastrointestinal: Soft, Tenderness (epigastrum) Back: Normal Inspection Extremity: Normal Capillary Refill Neurologic/Psychiatric: Alert, Oriented x3 Skin: Normal Color Progress/Results/Core Measures Suspected Sepsis Recent Fever Within 48 Hours: No Infection Criteria Present: None New/Unexplained Altered Menta: No Sepsis Screen: No Definite Risk SIRS Temperature:97.9 Pulse: 86 Respiratory Rate: 20 Laboratory Tests 04/01/19 23:36: White Blood Count 11.0 Blood Pressure 137 /71 Mean: 93 Laboratory Tests 04/01/19 23:36: Creatinine 0.79, INR Comment 1.0, Platelet Count 255, Total Bilirubin 0.2 Results/Orders Lab Results Laboratory Tests Test 04/01/19 23:36 Range/Units White Blood Count 11.0 4.3-11.0 10^3/uL Red Blood Count 4.67 4.35-5.85 10^6/uL Hemoglobin 13.6 13.3-17.7 G/DL Hematocrit 42 40-54 % Mean Corpuscular Volume 90 80-99 FL Mean Corpuscular Hemoglobin 29 25-34 PG Mean Corpuscular Hemoglobin Concent 33 32-36 G/DL Red Cell Distribution Width 13.2 10.0-14.5 % Platelet Count 255 130-400 10^3/uL Mean Platelet Volume 8.5 7.4-10.4 FL Neutrophils (%) (Auto) 63 42-75 % Lymphocytes (%) (Auto) 22 12-44 % Monocytes (%) (Auto) 8 0-12 % Eosinophils (%) (Auto) 5 0-10 % Basophils (%) (Auto) 1 0-10 % Neutrophils # (Auto) 7.0 1.8-7.8 X 10^3 Lymphocytes # (Auto) 2.4 1.0-4.0 X 10^3 Monocytes # (Auto) 0.9 0.0-1.0 X 10^3 Eosinophils # (Auto) 0.5 H 0.0-0.3 10^3/uL Basophils # (Auto) 0.1 0.0-0.1 10^3/uL Prothrombin Time 13.9 12.2-14.7 SEC INR Comment 1.0 0.8-1.4 Activated Partial Thromboplast Time 25 24-35 SEC Sodium Level 138 135-145 MMOL/L Potassium Level 4.0 3.6-5.0 MMOL/L Chloride Level 98 98-107 MMOL/L Carbon Dioxide Level 24 21-32 MMOL/L Anion Gap 16 H 5-14 MMOL/L Blood Urea Nitrogen 11 7-18 MG/DL Creatinine 0.79 0.60-1.30 MG/DL Estimat Glomerular Filtration Rate > 60 BUN/Creatinine Ratio 14 Glucose Level 135 H 70-105 MG/DL Calcium Level 9.3 8.5-10.1 MG/DL Corrected Calcium 9.6 8.5-10.1 MG/DL Total Bilirubin 0.2 0.1-1.0 MG/DL Aspartate Amino Transf (AST/SGOT) 24 5-34 U/L Alanine Aminotransferase (ALT/SGPT) 23 0-55 U/L Alkaline Phosphatase 81 40-136 U/L Troponin I < 0.30 <0.30 NG/ML Pro-B-Type Natriuretic Peptide 30.9 <75.0 PG/ML Total Protein 7.2 6.4-8.2 GM/DL Albumin 3.6 3.2-4.5 GM/DL Lipase 16 8-78 U/L My Orders Orders - MINNIE CRANDALL DO Cbc With Automated Diff (04/01/19 23:20) Comprehensive Metabolic Panel (04/01/19 23:20) Troponin I (04/01/19 23:20) Lipase (04/01/19 23:20) Ekg Tracing (04/01/19 23:20) Lorazepam Injection (Ativan Injection) (04/01/19 23:30) Ct Chest/Abdomen/Pelvis W (04/01/19 23:20) Protime With Inr (04/01/19 23:20) Partial Thromboplastin Time (04/01/19 23:20) Probnp Fs (04/01/19 23:20) Piperacillin/Tazobactam (Bulk) (Zosyn In (04/01/19 23:30) Iohexol Injection (Omnipaque 350 Mg/Ml 1 (04/01/19 23:30) Received Contrast (Hold Metformin- Contr (04/01/19 23:30) Ns (Ivpb) (Sodium Chloride 0.9% Ivpb Bag (04/01/19 23:30) Piperacillin Sodium/Tazobactam (Zosyn Vi (04/01/19 23:37) Iv Heplock-Insert (Order) (04/01/19 23:56) Iohexol Injection (Omnipaque 350 Mg/Ml 1 (04/02/19 00:15) Received Contrast (Hold Metformin- Contr (04/02/19 00:15) Ns (Ivpb) (Sodium Chloride 0.9% Ivpb Bag (04/02/19 00:15) Medications Given in ED Current Medications Medications Dose Ordered Sig/Lawson Route Start Time Stop Time Status Last Admin Dose Admin Iohexol 100 ml ONCE ONCE IV 04/01/19 23:30 04/01/19 23:31 DC 04/01/19 23:56 100 ML Lorazepam 1 mg ONCE ONCE IVP 04/01/19 23:30 04/01/19 23:31 DC 04/01/19 23:40 1 MG Piperacillin Sod/ Tazobactam Sod 4.5 gm/Sodium Chloride 120 ml @ 240 mls/hr ONCE ONCE IV 04/01/19 23:30 04/01/19 23:59 DC 04/01/19 23:45 240 MLS/HR Sodium Chloride 100 ml ONCE ONCE IV 04/01/19 23:30 04/01/19 23:31 DC 04/01/19 23:45 100 ML Sodium Chloride 100 ml ONCE ONCE IV 04/02/19 00:15 04/02/19 00:16 DC 04/01/19 23:56 100 ML Vital Signs/I&O 04/01/19 04/02/19 23:22 00:24 Temp 97.9 Pulse 90 86 Resp 20 20 B/P (MAP) 158/105 (122) 137/71 (93) Pulse Ox 96 96 O2 Delivery Room Air Room Air Capillary Refill : Less Than 3 Seconds Blood Pressure Mean: 93 Progress Note : Progress Note Patient was given a dose of Ativan as well as a dose of Zosyn while obtaining labs and imaging. I did CT to rule out acute perforation of any organ that may have occurred during Heimlich maneuver. CT was read as completely normal. Patient was observed for several hours in the emergency department. He says that his breathing feels much better and he has completely normal vital signs on repeat exam and is in no respiratory distress at all. I discussed treatment options with patient including transfer to another hospital for further observation versus discharging him on Augmentin and having him keep an eye on his symptoms and he would have to return if he starts having any difficulty breathing. I told him that patient could have delayed aspiration symptoms as the symptoms do not release present themselves within several hours and he could have delayed symptoms. I do not suspect any airway or esophageal perforation as he has no stridor and he is able to drink fluids with no difficulty. Patient was told to try and follow with his primary care provider later on today but if he had any issues at all to come back to emergency department immediately. Patient and are aware and agreeable with plan for discharge and verbalized understanding of the need for short-term follow-up and strict ED return precautions discussed at length including shortness of breath pain or other general concerns. Departure Impression Primary Impression: Aspiration into respiratory tract Additional Impressions: Choking episode Chest wall pain Abdominal pain Disposition: 01 HOME, SELF-CARE Condition: Stable Departure-Patient Inst. Referrals: [facility] (PCP) Primary Care Physician ABDIRASHID BAUER APRN (Family) Primary Care Physician Patient Instructions: Choking Scripts Amoxicillin/Potassium Clav (Augmentin 875-125 Tablet) 1 Each Tablet 1 EACH PO BID, #14 TAB 0 Refills Prov: MINNIE CRANDALL DO 04/02/19 MINNIE CRANDALL DO Apr 02, 2019 00:48
[2019-04-02] MEDS ORDERED: AMOX-358 PO (00:50)
[2019-04-02 00:52] VITALS: BP 137/71
--- NOTE | 2019-04-02 06:26 | Diagnostic Imaging Report ---
PROCEDURE: CT chest, abdomen, and pelvis with contrast. TECHNIQUE: Multiple contiguous axial images were obtained through the chest, abdomen, and pelvis after the administration of intravenous contrast. Auto Exposure Controls were utilized during the CT exam to meet ALARA standards for radiation dose reduction. INDICATION: Choking requiring Heimlich maneuver prior to arrival now complaining of chest and abdominal pain. Chest: No appreciable aspirated airway foreign body is seen. No segmental or subsegmental atelectasis. No findings of pulmonary hemorrhage. No pneumothorax or pneumomediastinum. There is no paraesophageal edema or abnormal gas collection. Aorta is patent and nonaneurysmal. There is no pleural or pericardial effusion. There is no identifiable rib fracture deformity. No mass or lymphadenopathy. Abdomen and pelvis: There is no free air. No evidence for bowel obstruction. No ascites, abscess, hematoma, fluid collection or inflammatory process. The gallbladder is surgically absent. The liver, spleen, adrenals and pancreas appeared unremarkable. Kidneys unobstructed and nonacute. Urinary bladder unremarkable. The abdominal pelvic osseous structures unremarkable. IMPRESSION: 1. Unremarkable CT evaluations of the chest, abdomen and pelvis. 2. In particular, no demonstrated aspirated foreign body, pneumothorax, pneumomediastinum or fracture. Dictated by: Dictated on workstation # [id number]
== END 2019-04-02 00:53 | disposition home or self-care (01) ==
LOC: ER FS 23:12 → EDUNIT# 23:12 → ER FS 04-02 00:53
DX: T17.920A Food in respiratory tract, part unspecified causing asphyxiation, initial encounter (principal); R07.89 Other chest pain; R10.13 Epigastric pain; J45.909 Unspecified asthma, uncomplicated; I11.0 Hypertensive heart disease with heart failure; I50.9 Heart failure, unspecified; E78.00 Pure hypercholesterolemia, unspecified; G43.909 Migraine, unspecified, not intractable, without status migrainosus; K21.9 Gastro-esophageal reflux disease without esophagitis; E66.01 Morbid (severe) obesity due to excess calories; F41.9 Anxiety disorder, unspecified; Z99.81 Dependence on supplemental oxygen; Z68.41 Body mass index [BMI] 40.0-44.9, adult; Z79.82 Long term (current) use of aspirin
CPT/HCPCS: 36415; 71260; 74177; 80053; 83690; 83880; 84484; 85025; 85610; 85730; 93005

== ENCOUNTER → 2019-06-18 | Outpatient (CLI) | payer MEDICARE, MEDICAID ==
[~2019-06-18] MED LIST changes: +AMOX-358 PO
== END ==
LOC: CARD 13:51
PROVIDERS: ATTEND Physician Assistant
DX: I10 Essential (primary) hypertension (principal); R07.9 Chest pain, unspecified; R06.02 Shortness of breath; M54.5 Low back pain
CPT/HCPCS: 93306

== ENCOUNTER → 2019-12-28 | Outpatient (CLI) | payer MEDICARE, MEDICAID ==
[~2019-12-28] MED LIST changes: -TRAZ-222 PO; +TRZ50T PO
--- NOTE | 2019-12-28 16:25 | Diagnostic Imaging Report ---
INDICATION: Chronic bilateral knee pain. TIME OF EXAM: 3:37 PM. TECHNIQUE: Multiple views of the bilateral knees were obtained. FINDINGS: The alignment appears to be normal bilaterally. The joint spaces are fairly well-maintained. There are well-corticated osseous densities projected within the medial compartment of the right knee on the AP view. These could be intra-articular and represent loose bodies. The left knee is unremarkable. The joint spaces are maintained. No fracture, dislocation, or effusion is seen. IMPRESSION: Questionable loose bodies in the right knee, as described. CT may be useful for further evaluation. No acute fracture is identified. Dictated by: Dictated on workstation # [id number]
== END ==
LOC: RAD FS 15:25
PROVIDERS: ATTEND Nurse Practitioner Family
DX: M25.561 Pain in right knee (principal); M25.562 Pain in left knee

== ENCOUNTER → 2020-01-04 | Outpatient (CLI) | payer MEDICARE, MEDICAID ==
--- NOTE | 2020-01-04 14:18 | Diagnostic Imaging Report ---
INDICATION: Elbow pain. History of previous fracture. TECHNIQUE: 3 views of the left elbow CORRELATION STUDY: None FINDINGS: There is no acute fracture. Alignment appears to be near-anatomic. There is increased density suggest calcifications adjacent to the lateral epicondyles. This could be reflective of underlying calcific tendinosis of the radial collateral ligament. Additional punctate density projecting just proximal to the olecranon and the ulna, nonspecific. No abnormal joint effusion. IMPRESSION: 1. Negative for acute bony abnormality of the elbow. Calcification adjacent lateral epicondyles. Could be reflective of calcific tendinosis. If there are continued concerns and/or symptoms persist, MRI may be of additional benefit. Dictated by: Dictated on workstation # [id number]
--- NOTE | 2020-01-04 14:20 | Diagnostic Imaging Report ---
PROCEDURE: CT right lower extremity without contrast. TECHNIQUE: Axially acquired CT was obtained through the right lower extremity without intravenous contrast. Coronal and sagittal reformations were also performed. Auto Exposure Controls were utilized during the CT exam to meet ALARA standards for radiation dose reduction. INDICATION: Right knee pain. COMPARISON: Right knee radiographs from 12/28/2019. FINDINGS: There is a 4 mm mineralized focus located along the posterior rim of the medial tibial plateau that may represent intra-articular body versus a calcification within the joint capsule. Tiny marginal osteophyte is also noted along the posterior margin of the medial tibial plateau. No osteochondral lesion. There are subchondral cystic changes noted within the medial femoral condyle suggesting full-thickness chondral fissuring and/or loss in this region. No knee joint effusion. Musculature around the knee is of normal bulk. IMPRESSION: 1. CT confirms the presence of a 5 mm mineralization along the posterior rim of the medial tibial plateau. This could represent mineralized intra-articular body versus capsular calcification. 2. No osteochondral lesion. Dictated by: Dictated on workstation # [id number]
== END ==
LOC: RAD FS 12:25
PROVIDERS: ATTEND Nurse Practitioner Family
DX: M25.522 Pain in left elbow (principal); M25.561 Pain in right knee
CPT/HCPCS: 73080; 73700

== ENCOUNTER → 2020-05-04 | Outpatient (CLI) | payer MEDICARE, MEDICAID ==
[~2020-05-04] MED LIST changes: +ASPI-1238 PO; -ASPI-983 PO; -PANT40TA3 PO; +PANT40TA52 PO
--- NOTE | 2020-05-04 17:00 | Diagnostic Imaging Report ---
INDICATION: Left elbow pain. COMPARISON: Comparison is made to study of 01/04/2020. EXAMINATION: AP, oblique and lateral views of the left elbow are obtained. FINDINGS: Similar to the previous study, there are punctate calcifications on the lateral margin of the elbow joint adjacent to the lateral epicondyle. There is no evidence of an acute fracture. No significant joint pain is identified. There is no abnormal lytic or sclerotic focus. IMPRESSION: Punctate calcifications along the lateral margin of the elbow are similar to previous examination. This may be related to old injury and clinical correlation would be useful. No acute abnormality is seen. Dictated by: Dictated on workstation # [id number]
== END ==
LOC: RAD FS 15:51
PROVIDERS: ATTEND Nurse Practitioner Family
DX: S59.902A Unspecified injury of left elbow, initial encounter (principal); M25.822 Other specified joint disorders, left elbow; X58.XXXA Exposure to other specified factors, initial encounter
CPT/HCPCS: 73080

== ENCOUNTER → 2022-01-11 | Outpatient (CLI) | payer MEDICARE, MEDICAID ==
[~2022-01-11] MED LIST changes: -LISI10TA2 PO; +LISI10TA25 PO; -OXYC-471 PO; +OXYC1TAB11 PO
== END ==
LOC: CARDFS 14:05
PROVIDERS: ATTEND Physician Assistant
DX: I10 Essential (primary) hypertension (principal)
CPT/HCPCS: 93306

== ENCOUNTER → 2022-01-22 | Outpatient (CLI) | payer MEDICARE, MEDICAID ==
[~2022-01-22] VITALS: Ht 149 cm; Wt 95.0 kg
[~2022-01-22] MED LIST changes: +REGADENOSON 0.4 MG/5 ML SYR (LEXISCAN) IV ONE
[2022-01-22] MEDS: CATHETER FLUSH 10 ML SYR IVP PRN ×2 (07:38→09:12)
[2022-01-22 09:10] VITALS: BP 104/59
--- NOTE | 2022-01-22 11:52 | Cardiology Stress Test Report ---
Stress Test Report Date of Procedure/Referring: Date of Procedure: Jan 22, 2022 [facility] [place] Admitting Physician Admitting Physician: Attending Physician: Vickie Lowe Indications: HTN Baseline Heart Rate: 64 Baseline Blood Pressure: Blood Pressure Systolic: 104 Blood Pressure Diastolic: 59 Baseline Vitals Vital Signs Date Time Temp Pulse Resp B/P (MAP) Pulse Ox O2 Delivery O2 Flow Rate FiO2 01/22/22 09:10 66 16 104/59 (74) 98 Room Air Baseline EKG: Baseline EKG: NSR Summary After explaining the procedure to the patient, he signed a consent and then brought to the stress nuclear laboratory. Patient received 0.4 mg Lexiscan for stress test, ECG, heart rate and blood pressure were monitored continuously. Resting and stress dose of radio tracer were injected, imaging was acquired and reviewed in short axis, horizontal long axis and vertical long axis views. TID: 1.09 SSS: 0 SDS: 0 EF: 75 1. Patient tolerated Lexiscan well 2. No significant ischemia or infarction on SPECT images 3. Normal left ventricular size, ejection fraction 75% Copy Copies To 1: [facility] [place] SCHAFFER MD Jan 22, 2022 11:52
== END ==
LOC: CARD 07:45
PROVIDERS: ATTEND Physician Assistant
DX: I10 Essential (primary) hypertension (principal)
CPT/HCPCS: 78452; 93017; A9502

== ENCOUNTER 2022-08-02 12:17 | Emergency (ER) | payer MEDICARE, MEDICAID ==
[~2022-08-02] VITALS: Ht 149.9 cm; Wt 99.1 kg
[~2022-08-02 12:17] MED LIST changes: -REGADENOSON 0.4 MG/5 ML SYR (LEXISCAN) IV ONE
[2022-08-02 12:56] LABS: BASOPHILS # (AUTO) 0.1 10^3/uL (0.0-0.1); BASOPHILS % (AUTO) 1 % (0-10); EOSINOPHILS # (AUTO) 0.3 10^3/uL (0.0-0.3); EOSINOPHILS % (AUTO) 4 % (0-10); HEMATOCRIT 46 % (40-54); HEMOGLOBIN 15.2 g/dL (13.3-17.7); LYMPHOCYTES # (AUTO) 2.5 10^3/uL (1.0-4.0); LYMPHOCYTES % (AUTO) 32 % (12-44); MEAN CORPUSCULAR HEMOGLOBIN 30 pg (25-34); MEAN CORPUSCULAR HGB CONC 33 g/dL (32-36); MEAN CORPUSCULAR VOLUME 89 fL (80-99); MEAN PLATELET VOLUME 9.9 fL (9.0-12.2); MONOCYTES # (AUTO) 0.5 10^3/uL (0.0-1.0); MONOCYTES % (AUTO) 6 % (0-12); NEUTROPHILS # (AUTO) 4.4 10^3/uL (1.8-7.8); NEUTROPHILS % (AUTO) 57 % (42-75); PLATELET COUNT 226 10^3/uL (130-400); WHITE BLOOD COUNT 7.7 10^3/uL (4.3-11.0)
[2022-08-02 13:09] LABS: POTASSIUM 3.9 MMOL/L (3.6-5.0)
[2022-08-02 13:10] LABS: CALCIUM 9.7 MG/DL (8.5-10.1); CREATININE SERUM 0.98 MG/DL (0.60-1.30)
--- NOTE | 2022-08-02 13:35 | Diagnostic Imaging Report ---
PROCEDURE: CT head and CT cervical spine without contrast. TECHNIQUE: Multiple contiguous axial images were obtained through the brain and cervical spine without the use of intravenous contrast. Sagittal and coronal reformations through the cervical spine were then performed. Auto Exposure Controls were utilized during the CT exam to meet ALARA standards for radiation dose reduction. INDICATION: Left facial numbness. Arm numbness. Syncope. COMPARISON: Cervical spine CT without contrast 03/25/2019. FINDINGS: CT HEAD: Mild generalized parenchymal volume loss. No CT evidence of territorial infarction. No intracranial hemorrhage, mass effect, hydrocephalus or extra-axial fluid collections. No acute osseous findings. Visualized paranasal sinuses and mastoids are clear. CT CERVICAL SPINE: Normal alignment. Vertebral body heights are preserved. No fractures. Mild scattered degenerative endplate changes. No evidence high-grade spinal canal stenosis. The lung apices are clear. The visualized paravertebral soft tissues are unremarkable. IMPRESSION: No acute intracranial or cervical spine CT findings. Dictated by: Dictated on workstation # [id number]
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
[2022-08-02] MEDS ORDERED: AMIT25TA9 PO (13:56)
[2022-08-02 14:10] VITALS: BP 126/72
== END 2022-08-02 14:11 | disposition home or self-care (01) ==
LOC: EDUNIT# 12:17 → ER FS 12:21
DX: R20.0 Anesthesia of skin (principal); J45.909 Unspecified asthma, uncomplicated; E66.9 Obesity, unspecified; Z68.41 Body mass index [BMI] 40.0-44.9, adult; Z99.89 Dependence on other enabling machines and devices
CPT/HCPCS: 36415; 70450; 72125; 80048; 83735; 85025

== ENCOUNTER → 2022-10-02 | Outpatient (CLI) | payer MEDICARE, MEDICAID ==
[~2022-10-02] MED LIST changes: +AMIT25TA9 PO
--- NOTE | 2022-10-02 14:19 | Diagnostic Imaging Report ---
INDICATION: Pain, lumbago. COMPARISON: 01/19/2016. TECHNIQUE: Three radiographs of the lumbar spine dated 10/02/2022. FINDINGS: Surgical clips within the right upper abdomen. Five lumbar-type vertebral bodies are present. Chain suture overlying the left upper abdomen. Alignment of the lumbar spine is well maintained. Vertebral body heights appear stable compared to the prior MRI. No severe disc space height loss. Scattered facet joint degenerative changes, greatest within the lower lumbar spine. No acute fracture or dislocation. The sacroiliac joints and pubic symphysis are intact. IMPRESSION: No acute osseous abnormality with mild degenerative changes present. Dictated by: Dictated on workstation # [id number]
--- NOTE | 2022-10-02 14:37 | Diagnostic Imaging Report ---
INDICATION: Neck pain. COMPARISON: 08/02/2022 and 03/13/2019. TECHNIQUE: Four radiographs of the cervical spine are obtained dated 10/02/2022. FINDINGS: The cervicothoracic junction is not optimally visualized secondary to overlying structures. No significant anterolisthesis or retrolisthesis. Vertebral body heights are stable and well maintained. No evidence of a recent vertebral body compression deformity. Minimal disc space height loss at C2/C3. Scattered facet joint degenerative changes. No acute fracture. Lateral masses are well seated. Visualized portions of the dens are unremarkable. Prevertebral soft tissues are unremarkable. IMPRESSION: No acute osseous abnormality with mild degenerative changes present. Dictated by: Dictated on workstation # [id number]
== END ==
LOC: RAD FS 08:52
PROVIDERS: ATTEND Nurse Practitioner Family
DX: M47.816 Spondylosis without myelopathy or radiculopathy, lumbar region (principal); M47.812 Spondylosis without myelopathy or radiculopathy, cervical region
CPT/HCPCS: 72040; 72100